=== PATIENT | female | born 1950 | race African-American/Black ===

== ENCOUNTER 2023-07-30 12:52 | Inpatient (IN) ==
[2023-07-30 17:06] VITALS: BMI 33.6
[2023-07-30] MEDS ORDERED: LR 1,000 ML IV 1,000 ML IV ONE (17:19)
[2023-07-30] MEDS: LR 1,000 ML IV 1,000 ML IV SCH (17:46)
[2023-07-30 18:14] LABS: BASOPHILS % (AUTO) 0.5 % (0.2-1.0); EOSINOPHILS # (AUTO) 0.5 x10^3/uL (0.0-0.2); EOSINOPHILS % (AUTO) 5.7 % (0.9-2.9); HEMATOCRIT 25.7 % (36.0-47.0); HEMOGLOBIN 8.1 g/dL (12.0-16.0); LYMPHOCYTES # (AUTO) 1.8 X10^3/uL (1.3-2.9); LYMPHOCYTES % (AUTO) 20.4 % (21.0-51.0); MEAN CORPUSCULAR HEMOGLOBIN 26.7 pg (27.0-34.0); MEAN CORPUSCULAR HGB CONC 31.5 g/dL (33.0-35.0); MEAN CORPUSCULAR VOLUME 84.8 fL (80.0-100.0); MEAN PLATELET VOLUME 8.5 fL (7.4-11.0); MONOCYTES # (AUTO) 0.7 x10^3/uL (0.3-0.8); MONOCYTES % (AUTO) 8.1 % (0.0-13.0); NEUTROPHILS # (AUTO) 5.8 x10^3/uL (2.2-4.8); NEUTROPHILS % (AUTO) 65.3 % (42.0-75.0); PLATELET COUNT 379 X10^3/uL (150.0-450.0); RED BLOOD COUNT 3.03 X10^6/uL (3.5-5.4); RED CELL DISTRIBUTION WIDTH 22.4 % (11.6-16.5); WHITE BLOOD COUNT 8.8 X10^3/uL (3.6-10.0)
[2023-07-30 18:18] LABS: INR 1.13 (0.8-1.3)
[2023-07-30 18:24] LABS: ALANINE AMINOTRANSFERASE 13 Units/L (12-78); ALBUMIN 1.8 g/dL (3.4-5.0); ALKALINE PHOSPHATASE 108 Units/L (46-116); ASPARTATE AMINO TRANSFERASE 22 Units/L (15-37); BLOOD UREA NITROGEN 43 mg/dL (7-18); CALCIUM 8.2 mg/dL (8.5-10.1); CARBON DIOXIDE 21.8 mmol/L (21-32); CHLORIDE 109 mmol/L (98-107); CREATININE 2.65 mg/dL (0.55-1.02); GLUCOSE 70 mg/dL (65-99); POTASSIUM 4.3 mmol/L (3.5-5.1); SODIUM 141 mmol/L (136-145); TOTAL PROTEIN 7.3 g/dL (6.4-8.2); eGFR NON BLACK RACES 19 (>60)
[2023-07-30 18:39] LABS: ANISOCYTOSIS 2+; HYPOCHROMASIA SLIGHT; PLATELET MORPHOLOGY COMMENT NORMAL (NORMAL); TARGET CELLS SLIGHT
[2023-07-30] MEDS: HEPARIN SODIUM IN D5W 25,000 UNITS/500 ML BAG IV PRN (19:17)
[2023-07-30] MEDS: HEPARIN SODIUM INJ 5000 UNITS IVP ONE (19:18)
[2023-07-30] MEDS: COREG TAB 12.5 MG PO SCH (20:09)
[2023-07-30] MEDS: LIPITOR TAB 40 MG PO SCH (20:09)
[2023-07-30] MEDS: SINGULAIR TAB 10 MG PO SCH (20:09)
--- NOTE | 2023-07-30 20:26 | RAD ---
EXAM:CHEST, 1 VIEWHISTORY:ISCHEMIA LEFT LEG, PRE OP;COMPARISON:None.TECHNIQUE:Single frontal chest radiographFINDINGS:Cardiomegaly with interstitial prominence likely with chronic basis. No prior studies comparison. No pneumothorax or pleural effusion. Peripheral interstitial infiltrate not excluded on the right. Prior median sternotomy.IMPRESSION:1. Chronic interstitial lung changes and cardiac prominence. Difficult to exclude a superimposed acute interstitial infiltrate, no prior studies for comparison.THIS IS AN ELECTRONICALLY VERIFIED FINAL REPORT07/30/2023 8:17 PM - Electronically signed by Francisco Burt MD
[2023-07-30] MEDS: HIBICLENS WASH EXT ONE (23:16)
--- NOTE | 2023-07-30 23:58 | DR.UPDATE ---
H&P UPDATE Review Yes Any changes to H&P?: No Changes noted:: none
--- NOTE | 2023-07-31 08:01 | NOTE.SOAP ---
Soap Note Note for Day of Date of Exam: 07/31/23 Subjective Data Subjective Data: Patient is a 72 year old female with critical limb ischemia well known to our services for previous toe amputations to the left lower extremity. She states that she has her toe amputations of the first and 2nd a couple of weeks ago and has not healed. Patient denies any pain to her feet at this time. She as well denies any constitutional symptoms including nausea, vomiting, fever, chest pain or SOB. Objective Data Objective Data: Amputation of the left hallux and 2nd digit. There is a fibrotic wound at the site of the hallux amputation with a fibrotic base and hyperkeratotic rim. Xerosis noted along the whole forefoot. Increase in pigmentation noted to the third digit. No drainage, crepitus or malodor noted. Skin is warm and skin wrinkles are present. Right foot is intact, no open wounds or lesions noted. Neurovascular status is diminished Assessment Assessment: 72 year old female with critical limb ischemia who has a nonhealing ulcer to the left foot as well as early onset dry gangrene. Plan Plan: Patient seen bedside this am, I discussed with her the plan; Dr. Jean-Baptiste will be taking the patient to the operating room today for intervention. I explained to her the possibility of losing the remaining toes on the left foot as her third digit is in the begining stage of necrosis. All risks and benefits of surgical vs conservative treatment were discussed with the patient in detail. We will follow up with Dr. Jean-Baptiste later today with her vascular status in anticipation to that her for a transmetatarsal amputation tomorrow 08/01/23. Patient to be NPO after midnight
[2023-07-31] MEDS: HYDROCHLOROTHIAZIDE 25 MG TAB PO SCH (08:35)
[2023-07-31] MEDS: ZESTRIL TAB 5 MG PO SCH (08:35)
[2023-07-31] MEDS: ALDACTONE TAB 25 MG PO SCH (08:35)
[2023-07-31] MEDS: NOLVADEX PO SCH (08:54)
[2023-07-31] MEDS: PROTONIX TAB 40 MG PO SCH (08:54)
[2023-07-31] MEDS: ZETIA TAB 10 MG PO SCH (08:54)
--- NOTE | 2023-07-31 09:42 | EKG ---
Test Reason : patient going for surgery Blood Pressure : */* mmHG Vent. Rate : 74 BPM Atrial Rate : 74 BPM P-R Int : 132 ms QRS Dur : 82 ms QT Int : 410 ms P-R-T Axes : 53 38 129 degrees QTc Int : 455 ms Normal sinus rhythm Abnormal ECG No previous ECGs available Confirmed by Samuel Seals MD ([id number]) on 07/31/2023 1:38:04 PM Referred By: Confirmed By: Samuel Seals MD
[2023-07-31] MEDS: NS 1,000 ML IV 1,000 ML ONE (10:50)
[2023-07-31] MEDS: NOZIN NASAL SANITIZER TP ONE (10:52)
[2023-07-31] MEDS: ANCEF VIAL 1 GRAM ONE (11:37)
[2023-07-31] MEDS: NS 100 ML IV 100 ML ONE (11:37)
[2023-07-31] MEDS: PEPCID 20 MG VIAL ONE (11:41)
[2023-07-31] MEDS: ZOFRAN INJ 4 MG VIAL ONE (11:41)
[2023-07-31] MEDS: DIPRIVAN VIAL 20 ML ONE (11:41)
[2023-07-31] MEDS: FENTANYL VIAL INJ 100 mcg ONE (11:41)
[2023-07-31] MEDS: VERSED ONE (11:41)
[2023-07-31] MEDS ORDERED: KETAMINE HCL ONE (11:41)
[2023-07-31] MEDS: NEO-SYNEPHRINE INJ ONE (12:01)
[2023-07-31] MEDS: HEPARIN SODIUM IN D5W 75,000 UNITS/1,500 ML BAG ONE (12:07)
[2023-07-31] MEDS: VISIPAQUE 100 ML ONE (12:07)
[2023-07-31] MEDS: MARCAINE 0.5% ONE (12:07)
[2023-07-31] MEDS: VISIPAQUE 50 ML ONE (12:07)
[2023-07-31] MEDS: HEPARIN SODIUM INJ 5000 UNITS ONE (12:09)
[2023-07-31] MEDS: VASOSTRICT INJ 20 UNITS VIAL ONE (12:14)
[2023-07-31] MEDS: PROTAMINE SULFATE 50 MG VIAL ONE (12:18)
--- NOTE | 2023-07-31 13:02 | NOTE.SOAP ---
Soap Note Note for Day of Date of Exam: 07/30/23 Subjective Data Subjective Data: Patient with non healing wound and question of progression of gangrene left 3rd toe after arterial intervention of the left AT and peroneal arteries with amputation of left great and second toes 3 weeks ago in [place]. Had atherectomy and angioplasty left AT and peroneal arteries. Objective Data Pulse Rate: 81 Respiratory Rate: 21 Blood Pressure: 100/66 O2 Sat by Pulse Oximetry: 100 Objective Data: Palpable femoral pulses bilaterally , No distal pulse palpable on left . Creatinine risen from 1.7 3 weeks ago in [place] to 2.65, therefore CTA cancelled Assessment Assessment: critical ischemia left leg with non-healing wounds left foot Plan Plan: On table arteriogram left leg , possible arterial intervention. Will limit dye load
--- NOTE | 2023-07-31 13:09 | OR.IMMED ---
IMMEDIATE POST-OP NOTE Immediate Post-Op Note Date of surgery/procedure: 07/31/23 Pre-Op Diagnosis: non - healing surgical wounds left foot after arterial intervention 3 weeks ago Post-Op Diagnosis: same Procedure: arteriogram left leg, IVUS left leg arteries , 75 % STENOSIS LEFT EXTERNAL ILIAC ARTERY Description of Procedure: SEE DICTATION Surgeon/Cell Efficiency Supervisor: Jerilyn Findings: 75 % stenosis left external iliac artery Estimated Blood Loss: 100 cc Complications: none Progress Notes: D/C heparin drip, return to CCU, begin diet, NPO after midnight , Dr. Napier to perform left transmetatarsal amputation
[2023-08-01] MEDS: PERCOCET TAB 5/325 MG PO PRN (01:59)
[2023-08-01 05:21] LABS: BASOPHILS % (AUTO) 0.4 % (0.2-1.0); EOSINOPHILS # (AUTO) 0.7 x10^3/uL (0.0-0.2); EOSINOPHILS % (AUTO) 7.4 % (0.9-2.9); HEMOGLOBIN 8.7 g/dL (12.0-16.0); LYMPHOCYTES # (AUTO) 0.9 X10^3/uL (1.3-2.9); LYMPHOCYTES % (AUTO) 10.4 % (21.0-51.0); MEAN CORPUSCULAR HEMOGLOBIN 26.2 pg (27.0-34.0); MEAN CORPUSCULAR HGB CONC 30.9 g/dL (33.0-35.0); MEAN CORPUSCULAR VOLUME 84.8 fL (80.0-100.0); MEAN PLATELET VOLUME 8.8 fL (7.4-11.0); MONOCYTES # (AUTO) 0.6 x10^3/uL (0.3-0.8); MONOCYTES % (AUTO) 7.4 % (0.0-13.0); NEUTROPHILS # (AUTO) 6.5 x10^3/uL (2.2-4.8); NEUTROPHILS % (AUTO) 74.4 % (42.0-75.0); PLATELET COUNT 392 X10^3/uL (150.0-450.0); RED CELL DISTRIBUTION WIDTH 22.7 % (11.6-16.5); WHITE BLOOD COUNT 8.8 X10^3/uL (3.6-10.0)
[2023-08-01 05:22] LABS: BLOOD UREA NITROGEN 36 mg/dL (7-18); CALCIUM 8.2 mg/dL (8.5-10.1); CARBON DIOXIDE 21.9 mmol/L (21-32); CHLORIDE 113 mmol/L (98-107); CREATININE 2.22 mg/dL (0.55-1.02); GLUCOSE 86 mg/dL (65-99); SODIUM 145 mmol/L (136-145); eGFR NON BLACK RACES 23 (>60)
[2023-08-01 05:35] LABS: POTASSIUM 5.1 mmol/L (3.5-5.1)
[2023-08-01 05:52] LABS: ANISOCYTOSIS 2+; HYPOCHROMASIA SLIGHT; PLATELET MORPHOLOGY COMMENT NORMAL (NORMAL); TARGET CELLS PRESENT
[2023-08-01 08:10] VITALS: TEMP 98; O2SAT 100
[2023-08-01 10:19] VITALS: RESP 32
[2023-08-01 11:28] VITALS: BP 144/65
[2023-08-01 12:41] VITALS: PULSE 79
--- NOTE | 2023-08-01 15:07 | W.DIS.FURT ---
Summary of Discharge Discharge Summary of Date Date of Exam: 08/01/23 Admission Date Date of Admission: 07/30/23 Admission Diagnosis Hospital Course: 72 year old female presented to my office on with history of arterial intervention of the left leg primarily below the knee several weeks previously for dry gangrene of the left great toe and left second toe which did require amputation .She had no scheduled follow-up with her providers in [place] and was seeing Dr. Napier and referred for non-healing wound to the left foot amputation site with swelling and possible early gangrene of the left third toe .She has a past history of diabetes, hypertension ,coronary artery bypass grafting in the past and personal history of breast cancer. She was admitted and placed on a heparin drip with plans to perform CT angiogram which were canceled because of rise in her creatinine from a baseline of approximately from 1.7 to 2.6 .She was hydrated overnight and was taken to the operating suite and underwent arteriogram of the left leg trying to limit the amount of dye . Shee had good runoff of the left leg after the previous intervention in [place] with good filling of the left foot primarily from a patent pos terior tibial artery and peroneal artery .The anterior tibial artery was completely occluded with no reconstitution distally .There was question of possible involvement of the left superficial femoral artery and iliac artery . Intravascular ultrasound showed greater than 75% stenosis of the left external iliac artery which was stented with a drug coated stent .Originally had planned to consider transmetatarsal amputation but discussed this with Dr. Napier and will observe her over the next few days to see if this improves .She will have follow up with me in 1 week and follow up with Dr. Napier in 1 week .She may still require transmetatarsal amputation but that is yet to be determined .She will be discharged home on her usual home medications with the addition of aspirin 81 mg po daily. Vital Signs: Vital Signs (72 hours) 07/31/23 13:02 07/30/23 16:20 07/30/23 16:32 Temperature 97.9 F Pulse Rate 81 77 Respiratory Rate 21 18 Blood Pressure 100/66 O2 Sat by Pulse Oximetry 100 99 Oxygen Delivery Method Nasal Cannula Nasal Cannula Oxygen Flow Rate 3 2 FIO2% 32 07/30/23 16:33 07/30/23 16:33 07/30/23 16:45 Temperature Pulse Rate 75 76 Respiratory Rate 17 16 Blood Pressure 113/55 O2 Sat by Pulse Oximetry 99 100 Oxygen Delivery Method Oxygen Flow Rate FIO2% 07/30/23 17:00 07/30/23 17:00 07/30/23 15:57 Temperature Pulse Rate 75 Respiratory Rate 16 Blood Pressure 104/57 O2 Sat by Pulse Oximetry 100 Oxygen Delivery Method Nasal Cannula Nasal Cannula Oxygen Flow Rate 2 2 FIO2% 07/30/23 17:15 07/30/23 17:30 07/30/23 17:45 Temperature Pulse Rate 76 76 75 Respiratory Rate 15 17 15 Blood Pressure O2 Sat by Pulse Oximetry 100 100 100 Oxygen Delivery Method Oxygen Flow Rate FIO2% 07/30/23 18:00 07/30/23 18:08 07/30/23 18:09 Temperature Pulse Rate 75 75 Respiratory Rate 16 17 Blood Pressure 113/59 O2 Sat by Pulse Oximetry 100 100 Oxygen Delivery Method Oxygen Flow Rate FIO2% 07/30/23 19:00 07/30/23 19:00 07/30/23 20:00 Temperature Pulse Rate 77 Respiratory Rate 14 Blood Pressure 109/72 O2 Sat by Pulse Oximetry 100 Oxygen Delivery Method Nasal Cannula Nasal Cannula Nasal Cannula Oxygen Flow Rate 2 2 2 FIO2% 28 07/30/23 20:00 07/30/23 21:00 07/30/23 22:00 Temperature 98.0 F Pulse Rate 87 85 81 Respiratory Rate 18 18 21 Blood Pressure 127/83 127/83 100/66 O2 Sat by Pulse Oximetry 99 99 100 Oxygen Delivery Method Nasal Cannula Nasal Cannula Nasal Cannula Oxygen Flow Rate 2 2 2 FIO2% 07/30/23 23:00 07/31/23 00:00 07/31/23 01:00 Temperature 98.0 F Pulse Rate 85 81 78 Respiratory Rate 22 16 16 Blood Pressure 112/52 96/60 130/60 O2 Sat by Pulse Oximetry 99 100 100 Oxygen Delivery Method Nasal Cannula Nasal Cannula Nasal Cannula Oxygen Flow Rate 2 2 2 FIO2% 07/31/23 02:00 07/31/23 03:00 07/31/23 04:00 Temperature 97.9 F Pulse Rate 75 80 77 Respiratory Rate 14 13 13 Blood Pressure 132/63 124/57 125/64 O2 Sat by Pulse Oximetry 100 100 100 Oxygen Delivery Method Nasal Cannula Nasal Cannula Nasal Cannula Oxygen Flow Rate 2 2 2 FIO2% 07/31/23 05:00 07/31/23 06:00 07/30/23 22:45 Temperature Pulse Rate 76 85 81 Respiratory Rate 13 13 18 Blood Pressure 131/62 119/57 O2 Sat by Pulse Oximetry 100 99 100 Oxygen Delivery Method Nasal Cannula Nasal Cannula Oxygen Flow Rate 2 2 FIO2% 07/30/23 23:00 07/30/23 23:00 07/30/23 23:15 Temperature Pulse Rate 81 79 Respiratory Rate 29 H 29 H Blood Pressure 102/51 O2 Sat by Pulse Oximetry 99 99 Oxygen Delivery Method Oxygen Flow Rate FIO2% 07/30/23 23:30 07/30/23 23:30 07/30/23 23:45 Temperature Pulse Rate 77 78 Respiratory Rate 27 H 25 H Blood Pressure 89/52 O2 Sat by Pulse Oximetry 100 100 Oxygen Delivery Method Oxygen Flow Rate FIO2% 07/31/23 00:00 07/31/23 00:00 07/31/23 00:15 Temperature Pulse Rate 79 85 Respiratory Rate 29 H 14 Blood Pressure 96/50 O2 Sat by Pulse Oximetry 99 99 Oxygen Delivery Method Oxygen Flow Rate FIO2% 07/31/23 00:30 07/31/23 00:31 07/31/23 00:31 Temperature Pulse Rate 82 85 Respiratory Rate 21 43 H Blood Pressure 101/56 O2 Sat by Pulse Oximetry 100 100 Oxygen Delivery Method Oxygen Flow Rate FIO2% 07/31/23 00:45 07/31/23 01:00 07/31/23 01:00 Temperature Pulse Rate 82 79 Respiratory Rate 16 14 Blood Pressure 130/60 O2 Sat by Pulse Oximetry 99 100 Oxygen Delivery Method Oxygen Flow Rate FIO2% 07/31/23 01:15 07/31/23 01:30 07/31/23 01:38 Temperature Pulse Rate 78 76 Respiratory Rate 13 15 Blood Pressure 130/56 O2 Sat by Pulse Oximetry 100 100 Oxygen Delivery Method Oxygen Flow Rate FIO2% 07/31/23 01:38 07/31/23 01:38 07/31/23 01:45 Temperature Pulse Rate 76 77 Respiratory Rate 14 14 Blood Pressure 130/56 O2 Sat by Pulse Oximetry 100 100 Oxygen Delivery Method Oxygen Flow Rate FIO2% 07/31/23 02:00 07/31/23 02:00 07/31/23 02:15 Temperature Pulse Rate 75 76 Respiratory Rate 13 13 Blood Pressure 132/63 O2 Sat by Pulse Oximetry 100 99 Oxygen Delivery Method Oxygen Flow Rate FIO2% 07/31/23 02:30 07/31/23 02:45 07/31/23 03:00 Temperature Pulse Rate 76 80 Respiratory Rate 13 17 Blood Pressure 124/57 O2 Sat by Pulse Oximetry 99 100 Oxygen Delivery Method Oxygen Flow Rate FIO2% 07/31/23 03:00 07/31/23 03:15 07/31/23 03:30 Temperature Pulse Rate 83 81 79 Respiratory Rate 13 14 17 Blood Pressure O2 Sat by Pulse Oximetry 100 100 100 Oxygen Delivery Method Oxygen Flow Rate FIO2% 07/31/23 03:45 07/31/23 04:00 07/31/23 04:00 Temperature Pulse Rate 76 77 Respiratory Rate 13 13 Blood Pressure 125/64 O2 Sat by Pulse Oximetry 100 100 Oxygen Delivery Method Oxygen Flow Rate FIO2% 07/31/23 04:15 07/31/23 04:32 07/31/23 04:45 Temperature Pulse Rate 81 100 H 79 Respiratory Rate 32 H 23 15 Blood Pressure O2 Sat by Pulse Oximetry 99 99 Oxygen Delivery Method Oxygen Flow Rate FIO2% 07/31/23 05:00 07/31/23 05:00 07/31/23 05:15 Temperature Pulse Rate 79 75 Respiratory Rate 14 13 Blood Pressure 131/62 O2 Sat by Pulse Oximetry 100 100 Oxygen Delivery Method Oxygen Flow Rate FIO2% 07/31/23 05:30 07/31/23 05:45 07/31/23 06:00 Temperature Pulse Rate 76 84 Respiratory Rate 13 13 Blood Pressure 119/57 O2 Sat by Pulse Oximetry 100 96 Oxygen Delivery Method Oxygen Flow Rate FIO2% 07/31/23 06:00 07/31/23 06:15 07/31/23 06:30 Temperature Pulse Rate 84 80 75 Respiratory Rate 14 13 12 Blood Pressure O2 Sat by Pulse Oximetry 100 100 100 Oxygen Delivery Method Oxygen Flow Rate FIO2% 07/31/23 06:45 07/31/23 06:58 07/31/23 07:00 Temperature Pulse Rate 73 72 Respiratory Rate 13 12 Blood Pressure 113/58 O2 Sat by Pulse Oximetry 100 100 Oxygen Delivery Method Oxygen Flow Rate FIO2% 07/31/23 07:01 07/31/23 07:15 07/31/23 07:30 Temperature Pulse Rate 74 74 81 Respiratory Rate 13 12 18 Blood Pressure O2 Sat by Pulse Oximetry 99 100 97 Oxygen Delivery Method Oxygen Flow Rate FIO2% 07/31/23 07:45 07/31/23 08:00 07/31/23 08:00 Temperature 98.0 F Pulse Rate 72 72 Respiratory Rate 15 13 Blood Pressure 123/75 O2 Sat by Pulse Oximetry 100 100 Oxygen Delivery Method Oxygen Flow Rate FIO2% 07/31/23 07:00 07/31/23 08:15 07/31/23 08:30 Temperature Pulse Rate 74 79 Respiratory Rate 12 14 Blood Pressure O2 Sat by Pulse Oximetry 100 97 Oxygen Delivery Method Nasal Cannula Oxygen Flow Rate 2 FIO2% 07/31/23 08:45 07/31/23 09:00 07/31/23 09:00 Temperature Pulse Rate 71 72 Respiratory Rate 13 13 Blood Pressure 132/69 O2 Sat by Pulse Oximetry 100 100 Oxygen Delivery Method Oxygen Flow Rate FIO2% 07/31/23 09:15 07/31/23 09:30 07/31/23 09:45 Temperature Pulse Rate 70 75 74 Respiratory Rate 13 16 15 Blood Pressure O2 Sat by Pulse Oximetry 100 96 100 Oxygen Delivery Method Oxygen Flow Rate FIO2% 07/31/23 10:00 07/31/23 10:00 07/31/23 10:15 Temperature Pulse Rate 72 71 Respiratory Rate 14 12 Blood Pressure 139/85 O2 Sat by Pulse Oximetry 100 100 Oxygen Delivery Method Oxygen Flow Rate FIO2% 07/31/23 10:50 07/31/23 13:15 07/31/23 13:30 Temperature 97.5 F L 97.5 F L Pulse Rate 74 69 67 Respiratory Rate 14 21 15 Blood Pressure 149/83 123/63 124/59 O2 Sat by Pulse Oximetry 99 100 100 Oxygen Delivery Method Nasal Cannula Oxygen Flow Rate FIO2% 07/31/23 13:45 07/31/23 14:00 07/31/23 14:15 Temperature 97.5 F L 97.5 F L 97.5 F L Pulse Rate 67 66 72 Respiratory Rate 13 14 16 Blood Pressure 122/59 130/60 145/67 O2 Sat by Pulse Oximetry 100 100 100 Oxygen Delivery Method Oxygen Flow Rate FIO2% 07/31/23 15:15 07/31/23 16:15 07/31/23 10:30 Temperature 97.8 F 97.8 F Pulse Rate 70 65 70 Respiratory Rate 12 11 L 12 Blood Pressure 111/56 108/53 O2 Sat by Pulse Oximetry 100 100 100 Oxygen Delivery Method Oxygen Flow Rate FIO2% 07/31/23 13:09 07/31/23 13:11 07/31/23 13:11 Temperature Pulse Rate 69 71 Respiratory Rate 15 Blood Pressure 123/63 O2 Sat by Pulse Oximetry 85 L 100 Oxygen Delivery Method Oxygen Flow Rate FIO2% 07/31/23 13:15 07/31/23 13:15 07/31/23 13:15 Temperature Pulse Rate 70 Respiratory Rate 25 H Blood Pressure 113/60 113/60 O2 Sat by Pulse Oximetry 100 Oxygen Delivery Method Oxygen Flow Rate FIO2% 07/31/23 13:30 07/31/23 13:30 07/31/23 13:45 Temperature Pulse Rate 67 Respiratory Rate 15 Blood Pressure 124/59 122/59 O2 Sat by Pulse Oximetry Oxygen Delivery Method Oxygen Flow Rate FIO2% 07/31/23 13:45 07/31/23 14:00 07/31/23 14:00 Temperature Pulse Rate 67 66 Respiratory Rate 13 14 Blood Pressure 130/60 O2 Sat by Pulse Oximetry Oxygen Delivery Method Oxygen Flow Rate FIO2% 07/31/23 14:15 07/31/23 14:15 07/31/23 14:30 Temperature Pulse Rate 77 73 Respiratory Rate 24 22 Blood Pressure 118/57 O2 Sat by Pulse Oximetry Oxygen Delivery Method Oxygen Flow Rate FIO2% 07/31/23 14:31 07/31/23 14:31 07/31/23 14:45 Temperature Pulse Rate 75 73 Respiratory Rate 22 27 H Blood Pressure 145/67 O2 Sat by Pulse Oximetry 100 Oxygen Delivery Method Oxygen Flow Rate FIO2% 07/31/23 14:45 07/31/23 15:00 07/31/23 15:00 Temperature Pulse Rate Respiratory Rate Blood Pressure 123/58 120/61 120/61 O2 Sat by Pulse Oximetry Oxygen Delivery Method Oxygen Flow Rate FIO2% 07/31/23 15:00 07/31/23 15:00 07/31/23 15:15 Temperature Pulse Rate 71 71 Respiratory Rate 20 20 Blood Pressure 111/56 O2 Sat by Pulse Oximetry 100 100 Oxygen Delivery Method Oxygen Flow Rate FIO2% 07/31/23 15:15 07/31/23 15:30 07/31/23 15:31 Temperature Pulse Rate 73 75 74 Respiratory Rate 13 14 13 Blood Pressure O2 Sat by Pulse Oximetry 100 100 100 Oxygen Delivery Method Oxygen Flow Rate FIO2% 07/31/23 15:31 07/31/23 15:45 07/31/23 15:45 Temperature Pulse Rate 70 Respiratory Rate 13 Blood Pressure 128/57 109/54 O2 Sat by Pulse Oximetry 100 Oxygen Delivery Method Oxygen Flow Rate FIO2% 07/31/23 16:00 07/31/23 16:00 07/31/23 16:00 Temperature Pulse Rate 68 68 Respiratory Rate 12 12 Blood Pressure 108/53 O2 Sat by Pulse Oximetry 100 100 Oxygen Delivery Method Oxygen Flow Rate FIO2% 07/31/23 16:00 07/31/23 16:00 07/31/23 16:15 Temperature Pulse Rate 64 Respiratory Rate 11 L Blood Pressure 108/53 108/53 O2 Sat by Pulse Oximetry 100 Oxygen Delivery Method Oxygen Flow Rate FIO2% 07/31/23 16:15 07/31/23 16:30 07/31/23 16:45 Temperature Pulse Rate 63 64 Respiratory Rate 10 L 10 L Blood Pressure 106/53 O2 Sat by Pulse Oximetry 100 100 Oxygen Delivery Method Oxygen Flow Rate FIO2% 07/31/23 17:00 07/31/23 17:03 07/31/23 17:03 Temperature Pulse Rate 71 69 Respiratory Rate 15 16 Blood Pressure 130/63 O2 Sat by Pulse Oximetry 100 100 Oxygen Delivery Method Oxygen Flow Rate FIO2% 07/31/23 17:15 07/31/23 17:15 07/31/23 17:30 Temperature 97.8 F Pulse Rate 67 71 68 Respiratory Rate 14 16 14 Blood Pressure 130/63 O2 Sat by Pulse Oximetry 100 100 99 Oxygen Delivery Method Oxygen Flow Rate FIO2% 07/31/23 17:45 07/31/23 18:00 07/31/23 18:00 Temperature Pulse Rate 68 Respiratory Rate 13 Blood Pressure 114/57 114/57 O2 Sat by Pulse Oximetry 100 Oxygen Delivery Method Oxygen Flow Rate FIO2% 07/31/23 18:00 07/31/23 18:00 07/31/23 18:15 Temperature 97.8 F Pulse Rate 68 68 Respiratory Rate 14 13 Blood Pressure 114/57 114/57 O2 Sat by Pulse Oximetry 100 Oxygen Delivery Method Oxygen Flow Rate FIO2% 07/31/23 19:00 07/31/23 18:30 07/31/23 19:00 Temperature Pulse Rate 81 Respiratory Rate 23 Blood Pressure 113/88 O2 Sat by Pulse Oximetry 92 L Oxygen Delivery Method Nasal Cannula Oxygen Flow Rate 2 FIO2% 07/31/23 19:00 07/31/23 19:15 07/31/23 20:03 Temperature Pulse Rate 78 74 Respiratory Rate 20 15 Blood Pressure O2 Sat by Pulse Oximetry 100 Oxygen Delivery Method Nasal Cannula Oxygen Flow Rate 2 FIO2% 28 07/31/23 19:30 07/31/23 19:45 07/31/23 20:00 Temperature Pulse Rate 73 74 Respiratory Rate 13 14 Blood Pressure 120/56 O2 Sat by Pulse Oximetry 100 100 Oxygen Delivery Method Oxygen Flow Rate FIO2% 07/31/23 20:00 07/31/23 20:00 07/31/23 20:00 Temperature Pulse Rate 75 Respiratory Rate 13 Blood Pressure 120/56 120/56 O2 Sat by Pulse Oximetry 100 Oxygen Delivery Method Oxygen Flow Rate FIO2% 07/31/23 20:00 07/31/23 20:15 07/31/23 20:30 Temperature 97.7 F Pulse Rate 75 79 75 Respiratory Rate 13 26 H 14 Blood Pressure O2 Sat by Pulse Oximetry 100 100 100 Oxygen Delivery Method Oxygen Flow Rate FIO2% 07/31/23 20:45 07/31/23 21:00 07/31/23 21:03 Temperature Pulse Rate 76 75 76 Respiratory Rate 19 14 16 Blood Pressure O2 Sat by Pulse Oximetry 100 Oxygen Delivery Method Oxygen Flow Rate FIO2% 07/31/23 21:03 07/31/23 21:15 07/31/23 21:30 Temperature Pulse Rate 75 75 Respiratory Rate 17 13 Blood Pressure 131/63 O2 Sat by Pulse Oximetry 99 100 Oxygen Delivery Method Oxygen Flow Rate FIO2% 07/31/23 21:45 07/31/23 22:00 07/31/23 22:01 Temperature Pulse Rate 75 73 73 Respiratory Rate 12 13 13 Blood Pressure O2 Sat by Pulse Oximetry 100 100 100 Oxygen Delivery Method Oxygen Flow Rate FIO2% 07/31/23 22:01 07/31/23 22:15 07/31/23 22:30 Temperature Pulse Rate 81 75 Respiratory Rate 13 18 Blood Pressure 94/49 O2 Sat by Pulse Oximetry 100 100 Oxygen Delivery Method Oxygen Flow Rate FIO2% 07/31/23 22:45 07/31/23 23:00 07/31/23 23:00 Temperature 97.7 F Pulse Rate 77 77 Respiratory Rate 13 13 Blood Pressure 120/59 O2 Sat by Pulse Oximetry 100 100 Oxygen Delivery Method Oxygen Flow Rate FIO2% 07/31/23 23:00 07/31/23 23:15 07/31/23 23:30 Temperature Pulse Rate 78 75 Respiratory Rate 13 18 Blood Pressure 120/59 O2 Sat by Pulse Oximetry Oxygen Delivery Method Oxygen Flow Rate FIO2% 07/31/23 23:45 08/01/23 00:00 08/01/23 00:01 Temperature Pulse Rate 101 H 81 Respiratory Rate 27 H 35 H Blood Pressure 117/60 O2 Sat by Pulse Oximetry 99 Oxygen Delivery Method Oxygen Flow Rate FIO2% 08/01/23 00:01 08/01/23 00:15 08/01/23 00:30 Temperature Pulse Rate 80 78 79 Respiratory Rate 17 17 16 Blood Pressure O2 Sat by Pulse Oximetry 100 100 100 Oxygen Delivery Method Oxygen Flow Rate FIO2% 08/01/23 00:45 08/01/23 01:00 08/01/23 01:01 Temperature Pulse Rate 76 78 Respiratory Rate 16 15 Blood Pressure 186/89 O2 Sat by Pulse Oximetry 100 100 Oxygen Delivery Method Oxygen Flow Rate FIO2% 08/01/23 01:01 08/01/23 01:04 08/01/23 01:04 Temperature Pulse Rate 79 77 Respiratory Rate 23 19 Blood Pressure 134/65 O2 Sat by Pulse Oximetry 100 100 Oxygen Delivery Method Oxygen Flow Rate FIO2% 08/01/23 01:04 08/01/23 01:04 08/01/23 01:15 Temperature Pulse Rate 76 Respiratory Rate 15 Blood Pressure 134/65 134/65 O2 Sat by Pulse Oximetry 100 Oxygen Delivery Method Oxygen Flow Rate FIO2% 08/01/23 01:30 08/01/23 01:45 08/01/23 02:00 Temperature Pulse Rate 75 80 78 Respiratory Rate 15 25 H 16 Blood Pressure O2 Sat by Pulse Oximetry 100 100 99 Oxygen Delivery Method Oxygen Flow Rate FIO2% 08/01/23 02:01 08/01/23 02:04 08/01/23 02:04 Temperature Pulse Rate 82 79 Respiratory Rate 21 17 Blood Pressure 153/70 O2 Sat by Pulse Oximetry 98 100 Oxygen Delivery Method Oxygen Flow Rate FIO2% 08/01/23 02:04 08/01/23 02:15 08/01/23 02:30 Temperature Pulse Rate 103 H 78 Respiratory Rate 52 H 15 Blood Pressure 153/70 O2 Sat by Pulse Oximetry 100 Oxygen Delivery Method Oxygen Flow Rate FIO2% 08/01/23 02:45 08/01/23 03:00 08/01/23 03:00 Temperature Pulse Rate 78 81 Respiratory Rate 19 15 Blood Pressure 173/78 O2 Sat by Pulse Oximetry 100 100 Oxygen Delivery Method Oxygen Flow Rate FIO2% 08/01/23 03:29 08/01/23 03:15 08/01/23 03:30 Temperature Pulse Rate 85 79 Respiratory Rate 15 28 H 22 Blood Pressure O2 Sat by Pulse Oximetry 74 L Oxygen Delivery Method Oxygen Flow Rate FIO2% 08/01/23 03:45 08/01/23 04:00 08/01/23 04:03 Temperature 97.9 F Pulse Rate 80 79 Respiratory Rate 15 17 Blood Pressure 166/95 O2 Sat by Pulse Oximetry 100 100 Oxygen Delivery Method Oxygen Flow Rate FIO2% 08/01/23 04:03 08/01/23 04:03 08/01/23 04:15 Temperature Pulse Rate 80 80 Respiratory Rate 15 16 Blood Pressure 166/95 O2 Sat by Pulse Oximetry 100 99 Oxygen Delivery Method Oxygen Flow Rate FIO2% 08/01/23 04:30 08/01/23 04:45 08/01/23 05:00 Temperature Pulse Rate 78 79 81 Respiratory Rate 13 14 16 Blood Pressure O2 Sat by Pulse Oximetry 100 100 100 Oxygen Delivery Method Oxygen Flow Rate FIO2% 08/01/23 05:01 08/01/23 05:01 08/01/23 05:15 Temperature Pulse Rate 78 82 Respiratory Rate 13 22 Blood Pressure 121/58 O2 Sat by Pulse Oximetry 100 98 Oxygen Delivery Method Oxygen Flow Rate FIO2% 08/01/23 04:29 08/01/23 05:30 08/01/23 05:45 Temperature Pulse Rate 81 80 Respiratory Rate 18 16 39 H Blood Pressure O2 Sat by Pulse Oximetry 100 96 Oxygen Delivery Method Oxygen Flow Rate FIO2% 08/01/23 06:00 08/01/23 06:01 08/01/23 06:01 Temperature Pulse Rate 83 86 Respiratory Rate 31 H 38 H Blood Pressure 132/79 O2 Sat by Pulse Oximetry Oxygen Delivery Method Oxygen Flow Rate FIO2% 08/01/23 07:00 08/01/23 08:00 08/01/23 07:00 Temperature 98.0 F Pulse Rate 80 84 Respiratory Rate 16 22 Blood Pressure 143/87 129/78 O2 Sat by Pulse Oximetry 97 100 Oxygen Delivery Method Nasal Cannula Nasal Cannula Nasal Cannula Oxygen Flow Rate 2 2 2 FIO2% 08/01/23 06:15 08/01/23 06:30 08/01/23 06:45 Temperature Pulse Rate 79 78 78 Respiratory Rate 17 14 14 Blood Pressure O2 Sat by Pulse Oximetry 100 100 100 Oxygen Delivery Method Oxygen Flow Rate FIO2% 08/01/23 07:00 08/01/23 07:10 08/01/23 07:10 Temperature Pulse Rate 91 H 81 Respiratory Rate 35 H 16 Blood Pressure 143/87 O2 Sat by Pulse Oximetry 83 L 96 Oxygen Delivery Method Oxygen Flow Rate FIO2% 08/01/23 07:15 08/01/23 07:30 08/01/23 07:45 Temperature Pulse Rate 80 91 H 97 H Respiratory Rate 15 28 H 36 H Blood Pressure O2 Sat by Pulse Oximetry 100 88 L 88 L Oxygen Delivery Method Oxygen Flow Rate FIO2% 08/01/23 08:00 08/01/23 08:01 08/01/23 08:01 Temperature Pulse Rate 89 85 Respiratory Rate 33 H 25 H Blood Pressure 129/78 O2 Sat by Pulse Oximetry Oxygen Delivery Method Oxygen Flow Rate FIO2% 08/01/23 08:15 08/01/23 08:30 08/01/23 08:45 Temperature Pulse Rate 92 H 93 H 84 Respiratory Rate 29 H 28 H 24 Blood Pressure O2 Sat by Pulse Oximetry 98 100 Oxygen Delivery Method Oxygen Flow Rate FIO2% 08/01/23 09:00 08/01/23 09:00 08/01/23 08:22 Temperature Pulse Rate 79 Respiratory Rate 16 Blood Pressure 140/62 O2 Sat by Pulse Oximetry 100 Oxygen Delivery Method Nasal Cannula Oxygen Flow Rate 2 FIO2% 08/01/23 09:15 08/01/23 09:30 08/01/23 09:45 Temperature Pulse Rate 87 80 82 Respiratory Rate 43 H 18 16 Blood Pressure O2 Sat by Pulse Oximetry 74 L 100 Oxygen Delivery Method Oxygen Flow Rate FIO2% 08/01/23 10:00 08/01/23 10:01 08/01/23 10:01 Temperature Pulse Rate 82 82 Respiratory Rate 19 20 Blood Pressure 154/77 O2 Sat by Pulse Oximetry 100 100 Oxygen Delivery Method Oxygen Flow Rate FIO2% 08/01/23 10:15 08/01/23 10:30 08/01/23 10:45 Temperature Pulse Rate 80 80 80 Respiratory Rate 32 H 15 15 Blood Pressure O2 Sat by Pulse Oximetry 100 100 100 Oxygen Delivery Method Oxygen Flow Rate FIO2% 08/01/23 11:00 08/01/23 11:01 08/01/23 11:01 Temperature Pulse Rate 84 84 Respiratory Rate 16 32 H Blood Pressure 144/65 O2 Sat by Pulse Oximetry 100 97 Oxygen Delivery Method Oxygen Flow Rate FIO2% 08/01/23 11:15 08/01/23 11:30 08/01/23 11:45 Temperature Pulse Rate 84 144 H 83 Respiratory Rate Blood Pressure O2 Sat by Pulse Oximetry 100 65 L 99 Oxygen Delivery Method Oxygen Flow Rate FIO2% 08/01/23 12:00 08/01/23 12:15 08/01/23 12:30 Temperature Pulse Rate 82 82 79 Respiratory Rate Blood Pressure O2 Sat by Pulse Oximetry 100 100 100 Oxygen Delivery Method Oxygen Flow Rate FIO2% Labs: Laboratory Last Values WBC 8.8 X10^3/uL (3.6-10.0) 08/01/23 04:21 RBC 3.30 X10^6/uL (3.5-5.4) L 08/01/23 04:21 Hgb 8.7 g/dL (12.0-16.0) L 08/01/23 04:21 Hct 28.0 % (36.0-47.0) L 08/01/23 04:21 MCV 84.8 fL (80.0-100.0) 08/01/23 04:21 MCH 26.2 pg (27.0-34.0) L 08/01/23 04:21 MCHC 30.9 g/dL (33.0-35.0) L 08/01/23 04:21 RDW 22.7 % (11.6-16.5) H 08/01/23 04:21 Plt Count 392 X10^3/uL (150.0-450.0) 08/01/23 04:21 Plt Count Comment Adequate (ADEQUATE) 08/01/23 04:21 MPV 8.8 fL (7.4-11.0) 08/01/23 04:21 Neut % (Auto) 74.4 % (42.0-75.0) 08/01/23 04:21 Lymph % (Auto) 10.4 % (21.0-51.0) L 08/01/23 04:21 [place] % (Auto) 7.4 % (0.0-13.0) 08/01/23 04:21 Eos % (Auto) 7.4 % (0.9-2.9) H 08/01/23 04:21 Baso % (Auto) 0.4 % (0.2-1.0) 08/01/23 04:21 Neut # (Auto) 6.5 x10^3/uL (2.2-4.8) H 08/01/23 04:21 Lymph # (Auto) 0.9 X10^3/uL (1.3-2.9) L 08/01/23 04:21 [place] # (Auto) 0.6 x10^3/uL (0.3-0.8) 08/01/23 04:21 Eos # (Auto) 0.7 x10^3/uL (0.0-0.2) H 08/01/23 04:21 Baso # (Auto) 0.0 X10^3/uL (0.0-0.1) 08/01/23 04:21 Absolute Nucleated RBC 0.0 /100WBC 08/01/23 04:21 Plt Morphology Comment Normal (NORMAL) 08/01/23 04:21 RBC Morphology Abnormal (NORMAL) A 08/01/23 04:21 Hypochromasia Slight A 08/01/23 04:21 Anisocytosis 2+ A 08/01/23 04:21 Target Cells Present 08/01/23 04:21 PT 14.3 SECONDS (11.8-14.3) 07/30/23 18:00 INR Target Range - 07/30/23 18:00 INR 1.13 (0.8-1.3) 07/30/23 18:00 APTT 69.6 SECONDS (22.9-36.5) H 07/31/23 07:46 PTT Comment - 07/31/23 07:46 Sodium 145 mmol/L (136-145) 08/01/23 04:21 Corrected Sodium TNP 08/01/23 04:21 Potassium 5.1 mmol/L (3.5-5.1) 08/01/23 04:21 Chloride 113 mmol/L (98-107) H 08/01/23 04:21 Carbon Dioxide 21.9 mmol/L (21-32) 08/01/23 04:21 BUN 36 mg/dL (7-18) H 08/01/23 04:21 Creatinine 2.22 mg/dL (0.55-1.02) H 08/01/23 04:21 Est GFR (MDRD) Af Amer 28 (>60) L 08/01/23 04:21 Est GFR (MDRD) Non-Af 23 (>60) L 08/01/23 04:21 Glucose 86 mg/dL (65-99) 08/01/23 04:21 Calcium 8.2 mg/dL (8.5-10.1) L 08/01/23 04:21 Corrected Calcium 10.0 mg/dL (8.5-10.1) 07/30/23 18:00 Total Bilirubin 0.20 mg/dL (0.2-1.0) 07/30/23 18:00 AST 22 Units/L (15-37) 07/30/23 18:00 ALT 13 Units/L (12-78) 07/30/23 18:00 Alkaline Phosphatase 108 Units/L (46-116) 07/30/23 18:00 Total Protein 7.3 g/dL (6.4-8.2) 07/30/23 18:00 Albumin 1.8 g/dL (3.4-5.0) L 07/30/23 18:00 Globulin 5.5 g/dL (2.5-4.5) H 07/30/23 18:00 Albumin/Globulin Ratio 0.3 Ratio (1.1-2.1) L 07/30/23 18:00 Reason For Visit: ISCHEMIA LEFT LEG Discharge Date Discharge Date: 08/01/23 Discharge Diagnosis All Active Problems (Updated 08/01/23 @ 14:42 by Ziggy Jean-Baptiste) Personal history of breast cancer (Acute) Type 2 diabetes mellitus without complications (Acute) Chronic ischemic heart disease, unspecified (Acute) Atherosclerosis of [place] arteries of extremities with rest pain, left leg (Acute) Plan of Treatment: Continue with present treatment and follow up plan. Pt is to keep follow up appointment as instructed and take medications as ordered. Discharge Medications Discharge Medications: aspirin Allergy (Verified 07/30/23 17:47) CONTINUE taking the following medications albuterol sulfate 90 mcg/actuation aerosol inhaler 2 puff inhalation BID 07/30/23 [History] atorvastatin 40 mg tablet 40 mg PO HS 07/30/23 [History] carvedilol 12.5 mg tablet 12.5 mg PO BID 07/30/23 [History] ezetimibe 10 mg tablet 10 mg PO DAILY 07/30/23 [History] hydrochlorothiazide 25 mg tablet 25 mg PO DAILY 07/30/23 [History] hydrocodone 10 mg-acetaminophen 325 mg tablet 1 tab PO TID PRN 07/30/23 [History] isosorbide dinitrate 10 mg tablet 10 mg PO DAILY 07/30/23 [History] lisinopril 2.5 mg tablet 2.5 mg PO BID 07/30/23 [History] montelukast 10 mg tablet 10 mg PO QDAY 07/30/23 [History] pantoprazole 40 mg tablet,delayed release 40 mg PO QDAY 07/30/23 [History] pregabalin 100 mg capsule 100 mg PO BID 07/30/23 [History] spironolactone 25 mg tablet 25 mg PO DAILY 07/30/23 [History] tamoxifen 20 mg tablet 20 mg PO DAILY 07/30/23 [History] aspirin 81 mg po daily Discharge Disposition Assessment: see hospital course Discharge Plan Discharge Plan Hospital Course: 72 year old female presented to my office on with history of arterial intervention of the left leg primarily below the knee several weeks previously for dry gangrene of the left great toe and left second toe which did require amputation .She had no scheduled follow-up with her providers in [place] and was seeing Dr. Napier and referred for non-healing wound to the left foot amputation site with swelling and possible early gangrene of the left third toe .She has a past history of diabetes, hypertension ,coronary artery bypass grafting in the past and personal history of breast cancer. She was admitted and placed on a heparin drip with plans to perform CT angiogram which were canceled because of rise in her creatinine from a baseline of approximately from 1.7 to 2.6 .She was hydrated overnight and was taken to the operating suite and underwent arteriogram of the left leg trying to limit the amount of dye . Shee had good runoff of the left leg after the previous intervention in [place] with good filling of the left foot primarily from a patent posterior tibial artery and peroneal artery .The anterior tibial artery was completely occluded with no reconstitution distally .There was question of possible involvement of the left superficial femoral artery and iliac artery . Intravascular ultrasound showed greater than 75% stenosis of the left external iliac artery which was stented with a drug coated stent .Originally had planned to consider transmetatarsal amputation but discussed this with Dr. Napier and will observe her over the next few days to see if this improves .She will have follow up with me in 1 week and follow up with Dr. Napier in 1 week .She may still require transmetatarsal amputation but that is yet to be determined .She will be discharged home on her usual home medications with the addition of aspirin 81 mg po daily. Patient Disposition: 06 HOME HEALTH SERVICE Condition: Stable Health Concerns: Post Hospitalization: new medications and changes needed to prevent readmission or further decline. Pt educated and given instructions on all concerns. Care Plan Goals: Problem: Pain/Alteration in Comfort Goal: Improve/ Resolve Pain; Achieve Pain Tolerance Instructions: Take pain medications as prescribed. Contact your primary care provider if your pain is unrelieved or worsens. Follow up with primary care provider as directed. Plan of Treatment: Continue with present treatment and follow up plan. Pt is to keep follow up appointment as instructed and take medications as ordered. Assessment: see hospital course Prescription drug monitoring program results: PDMP was not reviewed Prescriptions: Continued isosorbide dinitrate 10 mg tablet 10 mg PO DAILY atorvastatin 40 mg tablet 40 mg PO HS carvedilol 12.5 mg tablet 12.5 mg PO BID hydrocodone-acetaminophen 10-325 mg tablet 1 tab PO TID PRN spironolactone 25 mg tablet 25 mg PO DAILY pantoprazole 40 mg tablet,delayed release (DR/EC) 40 mg PO QDAY montelukast 10 mg tablet 10 mg PO QDAY hydrochlorothiazide 25 mg tablet 25 mg PO DAILY albuterol sulfate 90 mcg/actuation HFA aerosol inhaler 2 puff inhalation BID lisinopril 2.5 mg tablet 2.5 mg PO BID tamoxifen 20 mg tablet 20 mg PO DAILY ezetimibe 10 mg tablet 10 mg PO DAILY pregabalin 100 mg capsule 100 mg PO BID Follow ups/Referrals Follow ups/Referrals: Fabian Napier [CONSULTING PHYSICIAN] - 08/14/23 2:30 pm Ziggy Jean-Baptiste [Primary Care Provider] - 08/11/23 3:50 pm Instructions Instructions: Endovascular Therapy for Peripheral Vascular Disease, Care After Stand Alone Forms: Excuse From Work or School, Post Hospital Follow Up Care
--- NOTE | 2023-08-01 15:41 | DR.H&P ---
H&P History & Physical for Day of: H&P Date: 07/30/23 Chief Complaint Chief Complaint: Pain left foot and non-healing wound at site of amputation left great toe and second toe. Allergies Allergies Allergy/AdvReac Type Severity Reaction Status Date / Time aspirin Allergy Verified 07/30/23 17:47 History of Present Illness History of Present Illness: 72 year old female with history of coronary artery disease ,hypertension, And diabetes who was seen in [place] for dry gangrene of the left great toe and second toe .Treated with arterial intervention of the posterior tibial artery and peroneal artery below the knee and amputation of the 2 toes on the left .No follow up was arranged for her with her providers in [place] .She was evaluated by Dr. Reyes for non- healing at the amputation site of the left foot .She is being admitted for further evaluation and possible transmetatarsal amputation . Past Medical History Past Medical History: Coronary Artery Disease, Diabetes, Dyslipidemia and Hypertension Additional Medical History: personal histpry of breast cancer which has been treated . Past Surgical History Surgical History: CABG/Valve Surgery, Mastectomy, Ortho Surgery and Other Family History Family Medical History: Cancer and [place] Social History Does patient currently use any type of tobacco product: No Have you used tobacco products in the last 12 months: No Type of Tobacco Use: None Alcohol Use: None Drug Use: None Medications Home Medications: Home Medications Medication Instructions Recorded Confirmed Type albuterol sulfate 90 mcg/actuation 2 puff inhalation BID 07/30/23 07/30/23 History aerosol inhaler atorvastatin 40 mg tablet 40 mg PO HS 07/30/23 07/30/23 History carvedilol 12.5 mg tablet 12.5 mg PO BID 07/30/23 07/30/23 History ezetimibe 10 mg tablet 10 mg PO DAILY 07/30/23 07/30/23 History hydrochlorothiazide 25 mg tablet 25 mg PO DAILY 07/30/23 07/30/23 History hydrocodone 10 mg-acetaminophen 1 tab PO TID PRN 07/30/23 07/30/23 History 325 mg tablet isosorbide dinitrate 10 mg tablet 10 mg PO DAILY 07/30/23 07/30/23 History lisinopril 2.5 mg tablet 2.5 mg PO BID 07/30/23 07/30/23 History montelukast 10 mg tablet 10 mg PO QDAY 07/30/23 07/30/23 History pantoprazole 40 mg tablet,delayed 40 mg PO QDAY 07/30/23 07/30/23 History release pregabalin 100 mg capsule 100 mg PO BID 07/30/23 07/30/23 History spironolactone 25 mg tablet 25 mg PO DAILY 07/30/23 07/30/23 History tamoxifen 20 mg tablet 20 mg PO DAILY 07/30/23 07/30/23 History Labs 08/01/23 04:21 08/01/23 04:21 Labs: Laboratory WBC 8.8 X10^3/uL (3.6-10.0) 08/01/23 04:21 RBC 3.30 X10^6/uL (3.5-5.4) L 08/01/23 04:21 Hgb 8.7 g/dL (12.0-16.0) L 08/01/23 04:21 Hct 28.0 % (36.0-47.0) L 08/01/23 04:21 MCV 84.8 fL (80.0-100.0) 08/01/23 04:21 MCH 26.2 pg (27.0-34.0) L 08/01/23 04:21 MCHC 30.9 g/dL (33.0-35.0) L 08/01/23 04:21 RDW 22.7 % (11.6-16.5) H 08/01/23 04:21 Plt Count 392 X10^3/uL (150.0-450.0) 08/01/23 04:21 Plt Count Comment Adequate (ADEQUATE) 08/01/23 04:21 MPV 8.8 fL (7.4-11.0) 08/01/23 04:21 Neut % (Auto) 74.4 % (42.0-75.0) 08/01/23 04:21 Lymph % (Auto) 10.4 % (21.0-51.0) L 08/01/23 04:21 [place] % (Auto) 7.4 % (0.0-13.0) 08/01/23 04:21 Eos % (Auto) 7.4 % (0.9-2.9) H 08/01/23 04:21 Baso % (Auto) 0.4 % (0.2-1.0) 08/01/23 04:21 Neut # (Auto) 6.5 x10^3/uL (2.2-4.8) H 08/01/23 04:21 Lymph # (Auto) 0.9 X10^3/uL (1.3-2.9) L 08/01/23 04:21 [place] # (Auto) 0.6 x10^3/uL (0.3-0.8) 08/01/23 04:21 Eos # (Auto) 0.7 x10^3/uL (0.0-0.2) H 08/01/23 04:21 Baso # (Auto) 0.0 X10^3/uL (0.0-0.1) 08/01/23 04:21 Absolute Nucleated RBC 0.0 /100WBC 08/01/23 04:21 Plt Morphology Comment Normal (NORMAL) 08/01/23 04:21 RBC Morphology Abnormal (NORMAL) A 08/01/23 04:21 Hypochromasia Slight A 08/01/23 04:21 Anisocytosis 2+ A 08/01/23 04:21 Target Cells Present 08/01/23 04:21 PT 14.3 SECONDS (11.8-14.3) 07/30/23 18:00 INR Target Range - 07/30/23 18:00 INR 1.13 (0.8-1.3) 07/30/23 18:00 APTT 69.6 SECONDS (22.9-36.5) H 07/31/23 07:46 PTT Comment - 07/31/23 07:46 Sodium 145 mmol/L (136-145) 08/01/23 04:21 Corrected Sodium TNP 08/01/23 04:21 Potassium 5.1 mmol/L (3.5-5.1) 08/01/23 04:21 Chloride 113 mmol/L (98-107) H 08/01/23 04:21 Carbon Dioxide 21.9 mmol/L (21-32) 08/01/23 04:21 BUN 36 mg/dL (7-18) H 08/01/23 04:21 Creatinine 2.22 mg/dL (0.55-1.02) H 08/01/23 04:21 Est GFR (MDRD) Af Amer 28 (>60) L 08/01/23 04:21 Est GFR (MDRD) Non-Af 23 (>60) L 08/01/23 04:21 Glucose 86 mg/dL (65-99) 08/01/23 04:21 Calcium 8.2 mg/dL (8.5-10.1) L 08/01/23 04:21 Corrected Calcium 10.0 mg/dL (8.5-10.1) 07/30/23 18:00 Total Bilirubin 0.20 mg/dL (0.2-1.0) 07/30/23 18:00 AST 22 Units/L (15-37) 07/30/23 18:00 ALT 13 Units/L (12-78) 07/30/23 18:00 Alkaline Phosphatase 108 Units/L (46-116) 07/30/23 18:00 Total Protein 7.3 g/dL (6.4-8.2) 07/30/23 18:00 Albumin 1.8 g/dL (3.4-5.0) L 07/30/23 18:00 Globulin 5.5 g/dL (2.5-4.5) H 07/30/23 18:00 Albumin/Globulin Ratio 0.3 Ratio (1.1-2.1) L 07/30/23 18:00 Hgb= 8.1 on admission and Cr= 2.65 on admission Review of Systems Constitutional: See HPI Eyes: No Symptoms Reported ENT: No Symptoms Reported Respiratory: No Symptoms Reported Cardiovascular: No Symptoms Reported Gastrointestinal: No Symptoms Reported Genitourinary: No Symptoms Reported Musculoskeletal: See HPI Skin: See HPI Neurological: No Symptoms Reported Physical Exam Vital Signs: Vital Signs Temperature 98.0 F Pulse Rate 79 Pulse Rate 82 Pulse Rate 82 Pulse Rate 83 Pulse Rate 144 Pulse Rate 84 Pulse Rate 84 Pulse Rate 84 Pulse Rate 80 Pulse Rate 80 Pulse Rate 80 Pulse Rate 82 Pulse Rate 82 Pulse Rate 82 Pulse Rate 80 Pulse Rate 87 Pulse Rate 79 Pulse Rate 84 Pulse Rate 93 Pulse Rate 92 Pulse Rate 85 Pulse Rate 89 Pulse Rate 84 Pulse Rate 97 Pulse Rate 91 Respiratory Rate 32 Respiratory Rate 16 Respiratory Rate 15 Respiratory Rate 15 Respiratory Rate 32 Respiratory Rate 20 Respiratory Rate 19 Respiratory Rate 16 Respiratory Rate 18 Respiratory Rate 43 Respiratory Rate 16 Respiratory Rate 24 Respiratory Rate 28 Respiratory Rate 29 Respiratory Rate 25 Respiratory Rate 33 Respiratory Rate 22 Respiratory Rate 36 Respiratory Rate 28 Blood Pressure 144/65 Blood Pressure 154/77 Blood Pressure 140/62 Blood Pressure 129/78 Blood Pressure 129/78 O2 Sat by Pulse Oximetry 100 O2 Sat by Pulse Oximetry 100 O2 Sat by Pulse Oximetry 100 O2 Sat by Pulse Oximetry 99 O2 Sat by Pulse Oximetry 65 O2 Sat by Pulse Oximetry 100 O2 Sat by Pulse Oximetry 97 O2 Sat by Pulse Oximetry 100 O2 Sat by Pulse Oximetry 100 O2 Sat by Pulse Oximetry 100 O2 Sat by Pulse Oximetry 100 O2 Sat by Pulse Oximetry 100 O2 Sat by Pulse Oximetry 100 O2 Sat by Pulse Oximetry 100 O2 Sat by Pulse Oximetry 74 O2 Sat by Pulse Oximetry 100 O2 Sat by Pulse Oximetry 100 O2 Sat by Pulse Oximetry 98 O2 Sat by Pulse Oximetry 100 O2 Sat by Pulse Oximetry 88 O2 Sat by Pulse Oximetry 88 Oriented: Normal, Time, Person and Place Eyes: Normal Ear: Normal Nose: Normal Throat: Normal Respiratory: Clear Throughout Cardiovascular: Normal : Normal Auscultation: Bowel Sounds: Normal Palpation: Normal Tenderness: Normal Skin: Wound (Non-healing wound at sight of amputation left great toe and second toe measuring 1.3 by 1.3 by 0.3 centimeters with small amount of exudate ,no obvious cellulitis ) Musculoskeletal: Normal Psychiatric: Normal Mood Description: Calm Affect: Normal Speech Pattern: Clear Assessment/Plan (1) Atherosclerosis of [place] arteries of extremities with rest pain, left leg: Status: Acute Plan: Admkitg, labs, begin heparin drip, planned CTA canceled due to rise in creatinine . Will hydrate overnight and plan on table arteriogram left leg , possible IVUS to limit dye load , intervention as necessary (2) Personal history of breast cancer: Status: Acute (3) Type 2 diabetes mellitus without complications: Status: Acute Plan: sliding scale insulin (4) Chronic ischemic heart disease, unspecified: Status: Acute Plan: home medications
--- NOTE | 2023-08-02 20:22 | DR.OPNOTE ---
OP NOTE Pre-Op Diagnosis: critical ischemia left leg Post-Op Diagnosis: same Procedure Date Date Of Procedure: 07/31/23 Procedure: PROCEDURE: DIAGNOSTIC AORTOGRAM, DIAGNOSTIC ARTERIOGRAM LEFT LEG , IVUS LEFT LEG ARTERIES AND LEFT ILIAC ARTERIES NARRATIVE : The patient was taken to the operative suite and placed in the supine position. The right groin and entire left leg were prepped and draped in sterile fashion. The patient was given intravenous sedation supervised by myself. Time out for the procedure obtained. Ultrasound used to identify the right femoral artery and the skin overlying it infiltrated with 0.5% Marcaine. Ultrasound then used to guide puncture of the right femoral artery and a 0.012 inch guide wire was placed. Incision made over the guide wire at the skin edge with a # 11 knife blade and a micro sheath placed over the guide wire into the right femoral artery The small guidewire exchanged for a 0.035 inch Advantage glide wire and the micro sheath exchanged for a 5 Fr vascular sheath. Patient given 5000 units of intravenous heparin. Omni catheter was placed over the guide wire into the aorta and diagnostic aortogram carried out with the power injector showing diffusely diseased aorta and iliac arteries especially the left iliac artery . Omni catheter was used to steer the guide wire down the left common iliac artery to the distal left external iliac artery . Omni catheter was exchanged for a [place] catheter and sequential arteriograms carried out of the left lower extremity showing one area of possible stenosis of the left mid superficial femoral artery. The runoff of the left leg was the left posterior tibial and left peroneal arteries which both filled the left foot . The 5 Fr sheath in the left groin then exchanged for a 7 Fr destination sheath which was parked in the proximal left superficial femoral artery . [place] catheter and the guide wire were used to traverse the arteries of the left leg ultimately ending in the left popliteal artery . This was selective catheterization. 0.035 inch wire removed and exchanged for a 0.018 inch wire. Over this wire we placed the Opti- Cross intravascualar probe and performed IVUS of the left superficial femoral artery which showed no significant stenosis. IVUS of the left iliac artery showed 75% stenosis of the left external iliac artery. Over the wire we placed an Uzma 7mmx 80 mm drug coated stent over the area of stenosis of the left external iliac artery, then balloon dialted it with a 6 mm Hammond balloon. Repeat IVUS and arteriogram of the left iliac artery showed excellent resilts . All wires and devices removed. The 7 Fr sheath was pulled back into the aorta and a 0.035 inch wire placed. The destination sheath exchanged for an Angioseal device used to close the puncture of the right femoral artery.Dressing applied to the left groin. The patient taken to same day surgery in good condition. Type of Anesthesia: Local (0.5% Marcaine) Anesthesia Comment: plus MAC Findings: 75% stenosis left external iliac artery, runoff to left leg via posterior tibial artery and peroneal artery, occluded left anterior tibial artery. Type of Fluids Used:: Lactated Ringers Total Amount of Fluid Infused:: 500 cc Urine output: 400 cc EBL: 100cc Hardware: Uzma 7mm 80 mm stent placed left external iliac artery Complications:: none Needle/Sponge Count:: correct Disposition/Condition: Pt. tolerated procedure without difficulty. Taken to CCU in stable condition.
== END 2023-08-01 13:25 | disposition home or self-care (01) | DRG 254 ==
LOC: ICU 15:28
PROVIDERS: ADMIT Surgery; ATTEND Surgery
DX: I25.10 Atherosclerotic heart disease of native coronary artery without angina pectoris; R79.1 Abnormal coagulation profile; E11.65 Type 2 diabetes mellitus with hyperglycemia; Z85.3 Personal history of malignant neoplasm of breast; I70.222 Atherosclerosis of native arteries of extremities with rest pain, left leg